=== PATIENT | female | born 1960 | race Caucasian/White ===

== ENCOUNTER 2022-07-24 07:47 | Outpatient (CLI) | payer OTHER, SELFPAY | END 2022-07-24 07:48 | disposition home or self-care (01) | PROVIDERS: PCP Family Medicine; Referring Provider Family Medicine; Visit Provider Family Medicine | DX: Z13.6 Encounter for screening for cardiovascular disorders (principal) | CPT/HCPCS: 80053; 80061 ==

== ENCOUNTER 2022-08-24 08:02 | Outpatient (CLI) | payer OTHER, SELFPAY ==
--- NOTE | 2022-08-24 08:15 | CRLHL7_ITS ---
For Patients: As a result of the Century Cures Act, medical imaging exams and procedure reports are released immediately into your electronic medical record. You may view this report before your referring provider. If you have questions, please contact your health care provider. BILATERAL SCREENING MAMMOGRAM WITH COMPUTER-AIDED DETECTION TECHNIQUE: CC and MLO views were obtained. These mammographic images have been obtained using full-field digital technique. These mammographic images were interpreted with the benefit of computer-aided detection. COMPARISON FILM: 02/17/21, 07/25/19, 10/25/17. FINDINGS: The breasts are heterogeneously dense, which may obscure small masses IMPRESSION: There is no radiographic evidence for malignancy. ASSESSMENT: BI-RADS Category 1: Negative RECOMMENDATION: Routine screening mammogram in 1 year. A lay language report of this examination will be provided to the patient. Adam Dominguez M.D. Diagnostic Radiologist [email or web address] Transcribed: 5:41 p.ulises de souza/Dictated by: Adam Dominguez MD @ 08/24/2022 12:46:00 PM (Electronically Signed)
--- NOTE | 2022-08-24 10:00 | CRLHL7_ITS ---
For Patients: As a result of the Cures Act, medical imaging exams and procedure reports are released immediately into your electronic medical record. You may view this report before your referring provider. If you have questions, please contact your health care provider. INDICATION: Lung cancer screening. History of smoking. High risk patient with greater than 60 pack-year smoking history. TECHNIQUE: Low-dose lung cancer screening non-contrast CT chest. Dose reduction techniques were used. COMPARISON: None. FINDINGS: NODULES: None. LUNGS AND PLEURA: Mild emphysematous changes are present. No infiltrate, edema or effusion. No pneumothorax. MEDIASTINUM: No adenopathy. CORONARY ARTERY CALCIFICATION: Present. LIMITED UPPER ABDOMEN: Nonobstructing stones are present within the upper pole of the left kidney measuring up to 4 millimeters. MUSCULOSKELETAL: Normal. IMPRESSION: Negative for lung cancer screening purposes. LUNG-RADS CATEGORY: 1: Negative. RADIOLOGIST RECOMMENDATION: Continue annual screening with low-dose CT chest in 12 months. Please note that all CT scans at this facility use dose modulation, iterative reconstruction, and/or weight-based dosing when appropriate to reduce radiation dose to as low as reasonably achievable. Dictated by Adam Dominguez MD @ 08/24/2022 12:34:02 PM (Electronically Signed)
== END 2022-08-24 08:03 | disposition home or self-care (01) ==
LOC: MAMMO 08:03
PROVIDERS: PCP Family Medicine; Visit Provider Family Medicine
DX: Z12.2 Encounter for screening for malignant neoplasm of respiratory organs (principal); Z12.31 Encounter for screening mammogram for malignant neoplasm of breast; R92.2 Inconclusive mammogram; Z87.891 Personal history of nicotine dependence
CPT/HCPCS: 71271; 77067

== ENCOUNTER 2022-10-19 08:17 | Outpatient (CLI) | payer SELFPAY ==
--- NOTE | 2022-10-19 06:36 | PM.ANHP ---
HPI - Pre-Anesthesia History of Present Illness Time Seen by Provider: : Date Seen: 10/19/22 Date of service: 10/19/22 Reason for visit: colonoscopy Source: patient and old records reviewed Review of Systems Status of ROS Reports: 10 or more systems reviewed and unremarkable except as noted in History and below [facility] Medical History (Updated 10/19/22 @ 08:20 by Jun Jade MD) Colonoscopy planned Continuous tobacco abuse ?Z72.0 - Tobacco use (ICD-10) Umbilical hernia ?K42.9 - Umbilical hernia without obstruction or gangrene (ICD-10) Renal colic on left side (2014) ?N23 - Unspecified renal colic (ICD-10) Menopausal flushing ?N95.1 - Menopausal and female climacteric states (ICD-10) Insomnia ?G47.00 - Insomnia, unspecified (ICD-10) Complicated urinary tract infection ?N39.0 - Urinary tract infection, site not specified (ICD-10) Surgical History (Updated 07/26/22 @ 06:26 by Jodi Cheng MD) Status post breast reduction ?Z98.890 - Other specified postprocedural states (ICD-10) History of bladder suspension procedure (2008) ?Z98.890 - Other specified postprocedural states (ICD-10) ?Z87.448 - Personal history of other diseases of urinary system (ICD-10) Family History (Updated 07/26/22 @ 06:23 by Jodi Cheng MD) Sister Bipolar disorder Migraine Daughter Bipolar disorder Depression Father Bipolar disorder Anxiety Mother Breast cancer, Onset Age: 47 Uncle Prostate cancer Grandmother Cancer of oral cavity Social History (Updated 08/15/22 @ 08:09 by Jodi Cheng MD) Narrative: , nurse, RN, 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, 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 smoker, 40 pack years, quit 2019 Non-smoker Exercise walking once a week 1 alcoholic drink a week Smoking Status: Former smoker Little interest or pleasure in doing things: not at all Feeling down, depressed, or hopeless: not at all Meds Home Medications and Allergies Allergies Allergy/AdvReac Type Severity Reaction Status Date / Time escitalopram AdvReac Unknown Vomiting, Verified 08/15/22 07:33 irritability Exam Const Documenting provider has reviewed patient's vital signs: yes Common normals: no apparent distress, oriented x3, healthy appearing, alert and well nourished General appearance: cooperative and comfortable Orientation/consciousness: Yes awake HENMT Common normals: normocephalic Head and scalp: normocephalic Neck & C-Spine Common normals: full ROM Chest Chest: symmetrical chest wall rise Resp Common normals: normal respiratory effort, no retractions, no use of accessory muscles and clear to auscultation bilaterally Auscultation: clear to auscultation bilaterally Cardio Common normals: regular rate, regular rhythm, S1 normal heart sound, S2 normal heart sound and no murmurs Rate: regular rate Rhythm: regular rhythm Heart sounds: S1 normal and S2 normal Neuro Common normals: oriented x3 Sensorium/orientation: awake and alert Assessment and Plan Assessment and plan (1) Colonoscopy planned: Status: Acute Plan no contraindication to proceed
--- NOTE | 2022-10-19 08:21 | W.ANESCHARGE ---
Anesthesia Charges Start Date/Time Anesthesia Start Date: 10/19/22 Anesthesia Start Time: 09:01 Stop Date/Time Anesthesia Stop Date: 10/19/22 Anesthesia Stop Time: 09:45
--- NOTE | 2022-10-19 09:49 | W.ANESCHARGE ---
Anesthesia Charges Start Date/Time Anesthesia Start Date: 10/19/22 Anesthesia Start Time: 09:01 Stop Date/Time Anesthesia Stop Date: 10/19/22 Anesthesia Stop Time: 09:45
== END 2022-10-19 08:18 | disposition home or self-care (01) ==
LOC: OP CLINIC 08:18
PROVIDERS: PCP Family Medicine; Visit Provider Surgery
DX: R19.5 Other fecal abnormalities (principal); K63.5 Polyp of colon; K62.1 Rectal polyp
CPT/HCPCS: 45385; 811; 88305; J2704

== ENCOUNTER 2024-11-25 15:15 | Outpatient (CLI) | payer SELFPAY | END 2024-11-25 15:16 | disposition home or self-care (01) | PROVIDERS: PCP Family Medicine; Visit Provider Family Medicine | DX: F41.8 Other specified anxiety disorders (principal); R53.83 Other fatigue; Z13.6 Encounter for screening for cardiovascular disorders | CPT/HCPCS: 80053; 80061; 84443 ==